=== PATIENT | male | born 1945 | race Caucasian/White ===

== ENCOUNTER 2016-04-29 12:45 | Outpatient (RCR) | payer MEDICARE | END 2016-07-28 | disposition home or self-care (01) | LOC: CARDREHAB 12:45 | DX: Z09 Encounter for follow-up examination after completed treatment for conditions other than malignant neoplasm (principal); Z95.1 Presence of aortocoronary bypass graft ==

== ENCOUNTER 2016-08-11 10:00 | Outpatient (RCR) | payer MEDICARE | END 2016-11-09 | disposition home or self-care (01) | LOC: CARDREHAB | DX: Z48.812 Encounter for surgical aftercare following surgery on the circulatory system (principal); Z95.1 Presence of aortocoronary bypass graft ==